=== PATIENT | male | born 1955 | race Caucasian/White ===

== ENCOUNTER 2024-07-17 14:40 | Emergency (ER) | payer OTHER, SELFPAY ==
--- NOTE | 2024-07-17 14:58 | ED.GENMED ---
History of Present Illness
General
Chief Complaint: Fall
Time Seen by Provider: 07/17/24 14:47
History of Present Illness
History of Present Illness:
68-year-old male presents the emergency department for evaluation after witnessed fall, reportedly fell from a standing height onto his buttocks. He complained of lower back and left hip pain prior to EMS transport however on arrival he is offering
no complaints. History of dementia with severe aphasia thus history is essentially unobtainable. There was no reported head strike and the patient is not on anticoagulant
Review of Systems
Review of Systems
Allergies reviewed?: Yes
All Other Systems: ROS reviewed and negative except as documented in HPI and ROS
Phy Exam
Physical Exam
Physical Exam:
GEN: Well appearing, NAD, WDWN
HEENT: Oral mucosa moist, no scleral icterus
Cardiac: Regular rate
Lung: No respiratory distress, no tachypnea
MSK: No gross deformity or injuries, no shortening or external rotation of the lower extremities. Bilateral hip range of motion normal however patient does indicate pain to the right hip on palpation. Patient responds to palpation of the lumbar
spine with reports of pain, no cervical or thoracic spinal tenderness
Skin: Good color, no pallor or jaundice, no rashes
Neuro: AO x3, moves all extremities freely
Psych: Calm, cooperative
Course
Orders/Labs/Results
Orders:
Orders
07/17/24 14:57
CR Lumbar Spine Comp Min 4 Vw* Urgent
Comment:
Reason For Exam: fall
CR Pelvis - 1 Or 2 Views Urgent
Comment:
Reason For Exam: fall ? hip pain
Vital Signs
Initial and Last Documented VS:
Initial Vital Signs
Temp Pulse Resp BP Pulse Ox
97.6 F 71 20 159/84 98
07/17/24 15:04 07/17/24 15:04 07/17/24 15:04 07/17/24 15:04 07/17/24 15:04
Last Documented Vital Signs
Temp Pulse Resp BP Pulse Ox
97.6 F 71 20 159/84 98
07/17/24 15:04 07/17/24 15:04 07/17/24 15:04 07/17/24 15:04 07/17/24 15:04
MDM/Problems Addressed
MDM/Problems Addressed:
Imaging does suggest a subtle sacral fracture however patient is in an inpatient dementia care unit thus does not require any further management for this. Discharged back to his memory care unit in stable condition
*Critical Care Note
Total Time (30-74mins, 75-104mins- exclusive of procedures): Not Applicable
ED Attending Note
-
Portions of this chart may have been created with voice recognition software.� Occasional wrong word or��sound alike� substitutions may have occurred due to the inherent limitations of voice recognition software.
Discharge Plan
Departure
Patient Disposition: Home (Routine Discharge)
Date of Disposition: 07/17/24
Time of Disposition: 16:24
Patient with high blood pressure during this ER visit?: No
Discharge Problem:
Fall
Instructions: Preventing falls in adults
Referrals:
Everett Galeana DO [Family Provider] -
Interventions
Interventions:
*Risk Screen - Suicide Last Done: 07/17/24 15:04
*General Assessment Last Done: 07/17/24 15:04
*Neglect/Abuse Screening Last Done: 07/17/24 15:04
ED- Fall Risk Assessment Last Done: 07/17/24 19:05
*ED COVID-19 Vaccine History Last Done: 07/17/24 15:12
*Nursing Disposition Last Done: 07/17/24 19:05
ED-Musculoskeletal Assessment Last Done: 07/17/24 16:00
ED- Neurological Assessment Last Done: 07/17/24 16:00
ED-Skin Assessment Last Done: 07/17/24 16:00
Discharge Date and Time
Discharge Date/Time: 07/17/24 19:05
Print Language: TAJIK
[2024-07-17 15:04] VITALS: BP 159/84
[2024-07-17 15:12] VITALS: BMI 20.4
== END 2024-07-17 19:05 | disposition home or self-care (01) ==
LOC: EMR 14:40
PROVIDERS: EMERGENCY PHYSICIAN Emergency Medicine; FAMILY PHYSICIAN Internal Medicine Geriatric Medicine
DX: M54.50 Low back pain, unspecified (principal); M25.552 Pain in left hip; W19.XXXA Unspecified fall, initial encounter; F03.90 Unspecified dementia, unspecified severity, without behavioral disturbance, psychotic disturbance, mood disturbance, and anxiety; R47.01 Aphasia
CPT/HCPCS: 99283; 72110; 72170

== ENCOUNTER 2024-12-25 18:06 | Emergency (ER) | payer OTHER, SELFPAY ==
[2024-12-25 18:07] VITALS: BMI 18.6
[2024-12-25 18:14] VITALS: BP 148/72
--- NOTE | 2024-12-25 19:07 | ED.GENMED ---
History of Present Illness
General
Chief Complaint: Fall
Source: patient and family
Time Seen by Provider: 12/25/24 18:21
History of Present Illness
History of Present Illness:
This patient is a 69-year-old male with a history of Alzheimer's and Parkinson's, who suffers from imbalance and multiple falls, who had 2 falls today. The first 1 was in the morning, and the second was in the afternoon. Patient is not on any
forms of anticoagulation/antiplatelet agents. He is noted to have bruising on his head. He is here with his who states he is acting his usual self. Patient denies any complaints although history limited given his baseline dementia.
Past History
Past History
ED Past Medical History: Other (Parkinson's, dementia, BPH)
Social History
Tobacco: Non-smoker
Alcohol: None
Drug: None
Personal:
Living: other (Memory care)
Phy Exam
Physical Exam
Physical Exam:
GENERAL: Alert , in no apparent distress
EYE: pupils equal and reactive, EOMI, no nystagmus, no photophobia. There is bruising noted at the lateral aspect of the orbit without associated crepitus deformity or other abnormalities. No conjunctival hemorrhage or hyphema noted
NECK: Supple, no significant adenopathy, no midline tenderness.
ENT: o/p clr, mmm. There are 2 bruises noted 1 on the right and 1 on the left side of the upper forehead
CARDIAC: Regular rate and rhythm .
LUNGS: Clear breath sounds bilaterally, no acute respiratory distress, no wheezes/rales/rhonchi
ABDOMEN: Soft, without focal tenderness, no r/g, no cvat
NEUROLOGICAL: Alert but not fully oriented, speech clear, moves all extremities equally, no facial droop,
SKIN: Warm and dry, skin intact.
MUSCULOSKELETAL: No edema, well perfused.
PSYCH: Normal and appropriate interaction but obviously confused.
Course
Orders/Labs/Results
Orders:
Orders
12/25/24 18:28
CT Cervical Spine W/o Iv Contr Urgent
Comment:
Reason For Exam: fall, dementia
CT Head W/o Iv Contrast Urgent
Comment:
Reason For Exam: fall, dementia
12/25/24 18:47
CT Facial Bones W/o Iv Contras Urgent
Comment:
Reason For Exam: trauma, L periorbital bruising/swelling
Vital Signs
Initial and Last Documented VS:
Initial Vital Signs
Temp Pulse Resp BP Pulse Ox
97.8 F 66 18 148/72 99
12/25/24 18:14 12/25/24 18:14 12/25/24 18:14 12/25/24 18:14 12/25/24 18:14
Last Documented Vital Signs
Temp Pulse Resp BP Pulse Ox
98 F 61 20 157/83 98
12/26/24 00:26 12/26/24 00:26 12/26/24 00:26 12/26/24 00:26 12/26/24 00:26
*Pulse Oximetry
SaO2: 99
Oxygen Mode of Delivery: Room air
Patient hypoxic: no
*Critical Care Note
Total Time (30-74mins, 75-104mins- exclusive of procedures): Not Applicable
Update Note
Update Note:
Patient presents to the Emergency Department with ____fall x 2
Number and Complexity of Problems Addressed at the Encounter
� Chronic conditions affecting care:
� Acute Exacerbation and/or Progression of Chronic Illness:
� Differential Diagnosis includes: But not limited to facial fracture, cervical, intracranial bleed, contusion, etc. etc.
Amount and/or Complexity of Data to be Reviewed and Analyzed
� I performed an independent evaluation of and my interpretation is:
EKG:
CT:
Xrays:
Laboratory Studies:
Other:
� Review of other/old records reveals:
� Clinical information was obtained by an independent historian: who is bedside. She states that patient is on hospice, and does not desire to pursue further testing beyond imaging to exclude injury.
� Prescriptions/Medications Considered but not given:
� Further testing considered but not performed:
Risk of Complications and/or Morbidity or Mortality of Patient Management
� Social determinants of health affecting care:
� Discussion with other providers (PCP, Hospitalists, Consultants, etc):
� Escalation of care including admission/observation vs risk of discharge considered:
ED Attending Note
-
Portions of this chart may have been created with voice recognition software.� Occasional wrong word or��sound alike� substitutions may have occurred due to the inherent limitations of voice recognition software.
Discharge Plan
Departure
Patient Disposition: Home (Routine Discharge)
Date of Disposition: 12/25/24
Time of Disposition: 21:34
Patient with high blood pressure during this ER visit?: Yes
Condition: Good
Discharge Problem:
Contusion
Instructions: Contusion (DC), Preventing falls in adults, BLOOD PRESSURE
Referrals:
Everett Galeana DO [Family Provider, Internal Medicine]
Activity Restrictions/Additional Instructions:
IF YOU DEVELOP INCREASING OR NEW CONFUSION, CHANGE IN VISION, REPEATED VOMITING, FEVER, FOCAL WEAKNESS, OR OTHER WORRISOME SIGNS, PLEASE RETURN TO THE ER IMMEDIATELY!
Interventions
Interventions:
*Risk Screen - Suicide Last Done: 12/25/24 18:14
*General Assessment Last Done: 12/25/24 18:17
*Neglect/Abuse Screening Last Done: 12/25/24 18:14
*ED- Fall Risk Assessment Last Done: 12/25/24 18:17
*ED COVID-19 Vaccine History Last Done: 12/26/24 00:26
*Nursing Disposition Last Done: 12/26/24 00:26
ED-Musculoskeletal Assessment Last Done: 12/25/24 18:17
ED- Neurological Assessment Last Done: 12/25/24 18:17
ED-Skin Assessment Last Done: 12/25/24 18:21
Discharge Date and Time
Discharge Date/Time: 12/26/24 00:39
Print Language: GUAMANIAN
[2024-12-26 00:26] VITALS: BP 157/83
== END 2024-12-26 00:39 | disposition home or self-care (01) ==
LOC: EMR 18:06
PROVIDERS: EMERGENCY PHYSICIAN Emergency Medicine; FAMILY PHYSICIAN Internal Medicine Geriatric Medicine
DX: S00.83XA Contusion of other part of head, initial encounter (principal); W19.XXXA Unspecified fall, initial encounter; F02.80 Dementia in other diseases classified elsewhere, unspecified severity, without behavioral disturbance, psychotic disturbance, mood disturbance, and anxiety; G20.A1 Parkinson's disease without dyskinesia, without mention of fluctuations; G30.9 Alzheimer's disease, unspecified; N40.0 Benign prostatic hyperplasia without lower urinary tract symptoms
CPT/HCPCS: 99284; 70450; 70486; 72125